=== PATIENT | female | born 1990 ===

== ENCOUNTER 2017-09-16 17:11 | Inpatient (IN) | payer OTHER ==
[~2017-09-16] VITALS: Ht 165.1 cm; Wt 76.2 kg
[2017-09-17] MEDS ORDERED: PRENATABS RX T1 EACH PO (03:15)
[2017-09-17] MEDS ORDERED: SYNTHROID75 MCG PO (03:16)
== END 2017-09-19 11:07 | DRG 781 ==
LOC: OB/GYN 17:11
PROC: 4A1HXCZ Monitoring of Products of Conception, Cardiac Rate, External Approach (ICD-10-PCS; principal; 2017-09-16)
DX: O21.0 Mild hyperemesis gravidarum (principal); Z3A.13 13 weeks gestation of pregnancy

== ENCOUNTER 2018-02-25 12:30 | Inpatient (IN) | payer OTHER ==
[~2018-02-25] VITALS: Ht 165.1 cm; Wt 3.2 kg
[~2018-02-25 12:30] MED LIST: PRENATABS RX T1 EACH PO; SYNTHROID75 MCG PO
[2018-03-13] MEDS ORDERED: SYNTHROID88 MCG PO (15:37)
[2018-03-13] MEDS ORDERED: VALTREX1000 MG PO (15:38)
== END 2018-03-16 13:05 | disposition home or self-care, planned readmission (81) | DRG 766 ==
LOC: LDR 03-13 15:05 → OB/GYN 03-13 15:05 → O/R 03-13 17:42 → OB/GYN 03-13 19:18
PROVIDERS: Obstetrics & Gynecology
PROC: 4A1HXCZ Monitoring of Products of Conception, Cardiac Rate, External Approach (ICD-10-PCS; 2018-03-13)
PROC: 10D00Z1 Extraction of Products of Conception, Low, Open Approach (ICD-10-PCS; principal; 2018-03-13 17:00)
DX: O33.8 Maternal care for disproportion of other origin (principal); Z37.0 Single live birth; Z3A.38 38 weeks gestation of pregnancy

== ENCOUNTER 2018-03-12 09:21 | Outpatient (CLI) | payer OTHER ==
[2018-03-13] MEDS ORDERED: SYNTHROID88 MCG PO (15:37)
[2018-03-13] MEDS ORDERED: VALTREX1000 MG PO (15:38)
== END 2018-03-12 13:32 | disposition home or self-care (01) ==
LOC: NST 09:21
DX: Z34.83 Encounter for supervision of other normal pregnancy, third trimester (principal)